=== PATIENT | male | born 1975 | race African-American/Black ===

== ENCOUNTER 2016-04-03 08:31 | Emergency (ER) | payer MEDICAID ==
[~2016-04-03] VITALS: Ht 185.4 cm; Wt 74.8 kg
[2016-04-03 09:21] VITALS: BP 131/76
== END 2016-04-03 10:05 | disposition home or self-care (01) ==
LOC: ER 08:33
DX: L25.9 Unspecified contact dermatitis, unspecified cause (principal)

== ENCOUNTER 2016-05-10 08:23 | Emergency (ER) | payer MEDICAID ==
[~2016-05-10] VITALS: Ht 185.4 cm; Wt 74.8 kg
[2016-05-10 09:36] VITALS: BP 144/78
== END 2016-05-10 10:52 | disposition home or self-care (01) ==
LOC: ER 08:23
DX: L25.9 Unspecified contact dermatitis, unspecified cause (principal)